=== PATIENT | male | born 1980 | race Caucasian/White ===

== ENCOUNTER 2017-02-09 12:05 | Day surgery (SDC) | payer OTHER ==
[~2017-02-09] VITALS: Ht 180.3 cm; Wt 84.0 kg
[2017-02-09] MEDS ORDERED: RANITIDINE (14:20)
[2017-02-09 14:47] VITALS: BP 121/79; PULSE 58; RESP 20
[2017-02-09] MEDS ORDERED: LIDOCAINE 2% (SDV) 5 ML INJ ONE (15:25)
[2017-02-09] MEDS ORDERED: PROPOFOL 40 ML ONE (15:25)
[2017-02-09] MEDS ORDERED: MIDAZOLAM 1 MG/ML 2 ML INJ ONE (15:26)
[2017-02-09] MEDS ORDERED: FENTAnyl 50 MCG/ML VIAL ONE (15:26)
--- NOTE | 2017-02-09 15:58 | OPPN ---
Date/Time of Note Date/Time of Note DATE: 02/09/17 TIME: 15:51 Proc Note GI Procedure Date 02/09/17 Indication: other (Ulcerative colitis) Pre-procedure Diagnosis Ulcerative colitis Post-procedure Diagnosis Impression: Moderately active colitis extending to the sigmoid colon. Otherwise normal colonic mucosa to cecum. Normal terminal ileum. Biopsies obtained from the terminal ileum, ascending colon, transverse colon, descending colon, sigmoid and rectum. Small internal hemorrhoids. Plan: Mesalamine orally and rectally. Review pathology as soon as available Follow-up as previously scheduled . Procedure Performed: Colonoscopy (With biopsies. Enteroscopy with biopsies) Surgeon CR JEAN BAPTISTE MD See signature line Metal Reclamation Kettle Tender none Anesthesia Type: MAC Anesthesiologist: REBECCA DONALD DO Tourniquet Time none EBL none Transfusion required none Biopsy 1: Terminal ileum/rule out ileitis, normal appearance Biopsy 2: Ascending colon/rule out colitis, normal appearance Biopsy 3: Transverse colon/Rule out colitis, normal appearance Additional Biopsy: Descending colon. Sigmoid colon. Rectum Grafts/Implants none Tubes/Drains none Complication(s) none Disposition: home Procedure Description After informed consent, with the patient/relatives understanding the procedure, its indications and potential risks and complications, including but not limited to: Allergic reaction, bleeding, perforation, infection, and after all pertinent questions were answered to the patient's satisfaction, the patient/ relatives signed the witnessed informed consent. Following this, premedication was administered slowly IV push under careful cardiovascular and respiratory monitoring with pulse OX[employer], automatic blood pressure, and stock saw operator. Once the sedative effect was achieved, the patient was placed in the left lateral decubitus position, digital rectal examination was performed. The colonoscope was then introduced and advanced under visual control throughout all segments of the colon including: the rectum, sigmoid, descending colon, splenic flexure, transverse colon, hepatic flexure, ascending colon and finally reaching the cecum which was clearly identified by transillumination, finger indentation and the ileocecal valve. Terminal ileum was entered and examined. Careful examination of the mucosa of the lower gastrointestinal tract both on insertion as well as withdrawal of the instrument disclosed the following findings: PREPARATION QUALITY: [Adequate], RECTAL EXAM: The anorectal area was visualized examined and digital rectal examination performed with the following findings: No evidence of perirectal disease, no masses. COLONIC MUCOSA: The mucosa of all segments of the colon was carefully examined and showed the following findings: There is moderate to severe erythema, edema and superficial erosion and ulceration of the mucosa extending from the rectum to the mid sigmoid colon. Beyond this point the mucosa appears unremarkable with the remainder of the colon. The ileocecal valve was clearly identified and appears unremarkable. The terminal ileum was entered and appears unremarkable. Random biopsies were obtained of all segments including the terminal ileum, ascending colon, transverse colon, descending colon, sigmoid and rectum. Moderate-sized internal hemorrhoids are present. Otherwise the examined mucosa appears within normal limits. There is no evidence of diverticular formation, polyps or other neoplasms, vascular malformation, or any other abnormality. The instrument was then withdrawn, the patient tolerated the procedure well and was transferred out of the Endoscopy Suite awake and in good condition to continue recovery under observation. Copies To: CC: CR JEAN BAPTISTE MD, MORDO MD Feb 09, 2017 15:58
[2017-02-09 16:15] VITALS: BP 115/71; RESP 14
== END 2017-02-09 17:56 | disposition home or self-care (01) ==
LOC: GIL 12:05
PROVIDERS: ATTEND Internal Medicine Gastroenterology
DX: K51.90 Ulcerative colitis, unspecified, without complications (principal); K64.8 Other hemorrhoids
CPT/HCPCS: 45380; J2250; J3010; Z7610